=== PATIENT | female | born 1990 | race Two or more races ===

== ENCOUNTER 2024-08-09 12:18 | Emergency (ER) | payer MEDICAID, SELFPAY ==
[2024-08-09 12:35] VITALS: BP 138/81; PULSE 77; RESP 18; TEMP 36.8; O2SAT 99; BMI 27.9
--- NOTE | 2024-08-09 12:47 | XR_ITS ---
Admission: Lumbar spine 3 views Technique one AP lateral coned lateral lower lumbar spine 3 views Date and time: August 09, 2024 1332 hours INDICATIONS: Lower back pain beginning one week ago. FINDINGS: Satisfactory alignment lumbar vertebral bodies on the lateral view Lumbar dextroscoliosis 6 degrees which may be positional Moderate to advanced disc narrowing L5-S1 IMPRESSION: No lumbar fracture Moderate to advanced degenerative disc disease L5-S1
--- NOTE | 2024-08-09 12:47 | XR_ITS ---
Examination: Sacrum and coccyx 3 views TECHNIQUE: AP, inclined AP, lateral sacrum and coccyx 3 views Date and time: August 09, 2024 1326 hours INDICATIONS: Patient fell last week with injury to the sacrum, sacral pain. FINDINGS: Old appearing deformity fifth sacral segment No definite acute fracture Adequate alignment sacrococcygeal segments IMPRESSION: No acute fracture depicted
--- NOTE | 2024-08-09 14:20 | XR_ITS ---
Examination: CT pelvis without intravenous contrast. 2-D sagittal and coronal reconstructions. Date and time of exam:August 09, 2024 1519 hours INDICATIONS: Patient fell last week with injury to the pelvis, hip pain CTDI: vol (mGy) :7.65 DLP: (mGycm) : 230 Technique: Multiple 3 mm axial sections of the pelvis have been obtained with the 64 slice high resolution scanner. 2-D sagittal and coronal reconstructions. Low dose protocols were performed. One or more of the following dose reduction techniques were used; automated exposure control, adjustment of the mA and/or KV according to patient size, use of iterative reconstruction technique. Findings: Iliac bones acetabular regions intact Hips intact Sacral and coccygeal segments appear intact Normal appendix No pelvic hematoma Trace free fluid in the pelvis Urinary bladder intact IMPRESSION: Negative for pelvic fracture
[2024-08-09 14:50] LABS: HCG Qualitative,Urine Negative
--- NOTE | 2024-08-09 15:51 | PD.EDBACK ---
ED Back Injury Pain RME/HPI General Chief Complaint: Back Pain/Injury Stated Complaint: TAILBONE PAIN X 1 WK POST FALL; 1999 IBUPROFEN 800 Time Seen by Provider: 08/09/24 12:47 Arrival date/time: 08/09/24 12:18 34-year-old female presents to the emergency department today with complaints of tailbone pain patient reports she fell approximately 1 week ago and has had tailbone pain since Limitations: no limitations Related Data Previous Rx's ?Medication ?Instructions ?Recorded ibuprofen 800 mg tablet 800 mg PO Q6H PRN pain #20 tabs 06/28/22 cyclobenzaprine 10 mg tablet 10 mg PO TID PRN muscle spasm 10 08/09/24 days #30 tab-caps ibuprofen 600 mg tablet 600 mg PO Q6H #30 tabs 08/09/24 Allergies Allergy/AdvReac Type Severity Reaction Status Date / Time No Known Allergies Allergy Verified 08/09/24 12:22 Review of Systems Review of Systems Systems Reviewed: All systems reviewed, normal except as documented Constitutional Constitutional: Reports system reviewed and no additional complaints, except as documented, Denies fatigue, Denies fever(s) and Denies headache(s) Eyes Eyes: Reports system reviewed and no additional complaints, except as documented and Denies blurry vision ENT Ears, Nose, Mouth, and Throat: Reports system reviewed and no additional complaints, except as documented, Denies headache(s), Denies nasal congestion and Denies nasal discharge Cardiovascular Cardiovascular: Reports system reviewed and no additional complaints, except as documented, Denies chest pain and Denies dyspnea Respiratory Respiratory: Reports system reviewed and no additional complaints, except as documented, Denies chest congestion, Denies cough and Denies dyspnea Gastrointestinal Gastrointestinal: Reports system reviewed and no additional complaints, except as documented and Denies abdominal pain Genitourinary Genitourinary: Reports system reviewed and no additional complaints, except as documented, Denies flank pain, Denies hematuria and Denies pelvic pain Musculoskeletal Musculoskeletal: Reports system reviewed and no additional complaints, except as documented, Denies abnormal gait, Denies numbness, Denies stiffness, Denies tingling and Reports other (Tailbone pain) Integumentary/Breasts Skin/Breast: Reports system reviewed and no additional complaints, except as documented and Denies rash Neurologic Neurologic: Reports system reviewed and no additional complaints, except as documented, Reports as per HPI, Denies abnormal gait, Denies headache(s), Denies numbness and Denies tingling Psychiatric Psychiatric: Reports system reviewed and no additional complaints, except as documented and Denies anxiety Endocrine Endocrine: Denies fatigue Past Medical History Past Medical History NEUROLOGIC: Negative Neurological Disorders or Seizures CARDIAC: Negative Cardiac Disorders or Congestive Heart Failure RESPIRATORY: Negative Chronic Obstructive Pulmonary Disease (COPD) GASTROINTESTINAL: Positive Gastrointestinal Disorders and Obesity GENITOURINARY: Positive Genitourinary Disorders and Kidney Stones (REMOVED 2017); Negative Renal Disease REPRODUCTIVE: Positive Fibroids (Uterine fibroid thoughout .) and Previous Pregnancies MUSCULOSKELETAL: Positive Fractures (RT WRIST FX); Negative Musculoskeletal Disorders ENDOCRINE: Negative Endocrine Disorders, Diabetes Mellitus Type 1 or Diabetes Mellitus Type 2 HEMATOLOGIC: Negative Blood Disorders, Anemia or Clotting Problems OTHER HISTORY: Positive Hospitalization (LABOR, KIDNEY STONES REMOVED.); Negative Autoimmune Disease, Shingles, Falls, Blood Transfusions, Blood Transfusion Reaction (N/A), Anesthesia Reactions, Chemotherapy, Radiation Therapy, Chicken Pox (Pt unsure) or Cancer Family History FAMILY HISTORY: Positive Family Cardiac Disorders (MGMA- [place]), Family Gastrointestinal Problems (PGMA- STOMACH [place]) and Family Cancer (PGMA - STOMACH [place]); Negative Family Psychiatric Problems, Family Respiratory Disorders, Family Surgery or Family Anesthesia Reaction Surgical History SURGICAL: Positive Section Social History SMOKING STATUS: Never smoker SECOND HAND EXPOSURE: No SUBSTANCE USE: does not use ED Exam General Limitations: Present no limitations General appearance: Present alert and in no apparent distress Head Head exam: Present atraumatic Eye Eye exam: Present normal appearance, PERRL and EOMI; Absent conjunctival injection ENT ENT exam: Present normal exam, normal oropharynx and mucous membranes moist Neck Neck exam: Present normal inspection, full ROM and trachea midline Chest Chest inspection: Present normal inspection and symmetric chest wall rise Respiratory Respiratory exam: Present normal lung sounds bilaterally; Absent respiratory distress Cardiovascular Cardiovascular exam: Present regular rate, normal rhythm and normal heart sounds Abdominal Exam Abdominal exam: Present soft and normal bowel sounds; Absent distention, tenderness, guarding, rebound or rigidity Extremities Exam Extremities exam: Present normal inspection and full ROM Back Exam Back exam: Present normal inspection and full ROM Neurological Exam Neurological exam: Present alert, oriented X3 and CN II-XII intact Psychiatric Psychiatric exam: Present normal affect and normal mood Skin Skin exam: Present warm, dry, intact and normal color Course Quality Measures none Orders Category Date Time Status CT pelvis wo con Stat Exams 08/09/24 14:20 Completed XR lumbar spine 2-3V Stat Exams 08/09/24 12:47 Completed XR sacrum coccyx min 2V Stat Exams 08/09/24 12:47 Completed HCG Qualitative,Urine Stat Lab 08/09/24 14:28 Completed Vital Signs Vital signs: Vital Signs Temperature 98.2 F 08/09/24 12:35 Pulse Rate 77 08/09/24 12:35 Respiratory Rate 18 08/09/24 12:35 Blood Pressure 138/81 H 08/09/24 12:35 Pulse Oximetry (%) 99 08/09/24 12:35 Oxygen Delivery Method Room Air 08/09/24 12:35 O2 saturation 99% on room air within normal limits Back Pain / Injury MDM Narrative MDM Narrative:: 34-year-old female presents to the emergency department today with complaints of tailbone pain patient reports she fell approximately 1 week ago and has had tailbone pain since On exam patient well-appearing patient does not appear toxic in no acute distress On exam patient has tenderness to the tailbone region Imaging obtained no acute emergent findings noted Patient be discharged with pain medication muscle relaxers Patient discharged home in no distress to follow-up with primary care doctor in the next 24 to 48 hours and for any worsening symptoms to return to the ER immediately Patient data External records reviewed:: [facility] previous records Clinical information provided by:: patient Social determinants that could affect healthcare access:: none Patient has the following chronic illnesses:: None How is presenting disease/condition affected by chronic disease/condition?: no chronic disease Evaluation data The following diagnostics were reviewed and interpreted by me:: radiology exam(s) Lab and/or radiology exams considered but not ordered:: Radiology obtain Interpretation Summary: Reviewed by me Medications / Prescriptions Medications or Prescriptions considered but not ordered:: Given Medication administrations:: Given Consultations Consultation(s) initiated? (list below): No Diagnosis Differential diagnosis back pain/injury: lumbar radiculopathy, strain of lumbar region, renal colic, pyelonephritis and thoracic back pain Most likely diagnosis given after review of the tests above:: Coccygeal pain Admission Indicated Admission indicated?: not indicated Admission Request Was there a request for admission?: No Disposition Plan Disposition Plan: Discharge Discharge Attestation Discharge Attestation: The patient and all family members were given an opportunity to ask questions and understood the discharge instructions. Discharge instructions specifically effects, indications for sooner follow up or return to the emergency department, and the expected course of current diagnosis. Patient condition: Stable Discharge Plan Plan Patient Disposition: HOME (Self Care) Discharge Disposition comment: Stable Prescriptions/Referrals Prescriptions/Med Rec: New cyclobenzaprine 10 mg tablet 10 mg PO TID PRN (Reason: muscle spasm) 10 Days Qty: 30 0RF ibuprofen 600 mg tablet 600 mg PO Q6H Qty: 30 0RF No Action ibuprofen 800 mg tablet 800 mg PO Q6H PRN (Reason: pain) Qty: 20 0RF Referrals: Marv Goldman MD [Primary Care Provider] - 08/10/24 Problem List Clinical Impression: Coccyx pain Patient/Caregiver Discharge Instructions Education Materials: Self Care Back Day Additional Instructions: Please follow up with your primary care doctor in the next 24-48hrs for any worsening symptoms return here immediately Print Language: Thai Stand Alone Forms: Kiara Award Info., Patient Portal Info Letter ALTHEA/ABHI Supervising Physician ALTHEA/ABHI Supervising Physician: dr garza
== END 2024-08-09 18:22 | disposition home or self-care (01) ==
PROVIDERS: Nurse Practitioner Primary Care; Emergency Provider Emergency Medicine; PCP Family Medicine
DX: M53.3 Sacrococcygeal disorders, not elsewhere classified (principal)
CPT/HCPCS: 72100; 72192; 72220; 81025; 99284